=== PATIENT | male | born 1995 | race Caucasian/White ===

== ENCOUNTER 2023-12-01 19:53 | Emergency (ER) | payer OTHER, SELFPAY ==
[2023-12-01 19:56] VITALS: BP 119/75; BMI 20.7
[2023-12-01 21:01] VITALS: BP 117/73
[2023-12-01] MEDS: XYLOCAINE 4% TOPICAL SOLUTION 5 ML TOPICAL (21:30)
[2023-12-01] MEDS: TORADOL 30 MG IV (21:57)
[2023-12-01 22:03] VITALS: BP 123/66
--- NOTE | 2023-12-02 00:21 | ED.GENMED ---
History of Present Illness
General
Chief Complaint: Anal/Rectal Problem
Source: patient and spouse
Exam Limitations: none
Time Seen by Provider: 12/01/23 19:56
Nursing documentation reviewed up to this point in time: agreed with
History of Present Illness
History of Present Illness:
28-year-old male with no chronic medical issues presents for evaluation of rectal pain. Patient says that he has had severe pain from hemorrhoids x 5 days. He says that the pain is much more intense when he sits down, much more intense with bowel
movements. He says he has been using sitz bath's, suppositories and topical hemorrhoid cream but symptoms have not improved and in fact have worsened. Came to the emergency room for evaluation. He has not noticed any significant constipation but
does bear down a bit with bowel movements.
Past History
Social History
Tobacco: Smoker
Alcohol: Occasional
Family History
Family History: Other (Hemachromatosis in his dad and uncles)
Review of Systems
Review of Systems
All Other Systems: ROS reviewed and negative except as documented in HPI and ROS
ABD/GI: Reports other (Rectal pain)
Phy Exam
Physical Exam
Physical Exam:
General: Appears uncomfortable laying on his side in bed
HEENT: protecting airway
Neck: appears supple
CV: No evidence of cyanosis
Resp: No accessory muscle use
Abd: Non-distended, nontender
Rectal: Patient has a large thrombosed external hemorrhoid at the 9 o'clock position as well as a smaller thrombosed hemorrhoid at approximately 7 o'clock position; hemorrhoids are purpleish hue, hard and tender to the touch
Extremities: No deformities
Neuro: Alert
Psych: Normal affect
Skin: Intact
Scores
Heart Failure Risk
Heart Failure Risk Score: Not Applicable
Heart Score for Chest Pain Patients
STEMI patient?: Not applicable
Withdrawal Assessment of Alcohol
Withdrawal Assessment Completed?: Not applicable
Course
Orders/Labs/Results
Orders:
Orders
12/01/23 21:20
Lidocaine HCl 4% [Xylocaine 4% Topical Solution] 5 ml TOPICAL ONCE ONE
12/01/23 21:55
Ketorolac [Toradol] 30 mg .ROUTE .STK-MED ONE
12/01/23 21:57
Ketorolac [Toradol] 30 mg IV NOW STA
Vital Signs
Initial and Last Documented VS:
Initial Vital Signs
Temp Pulse Resp BP Pulse Ox
36.3 C 84 18 119/75 98
12/01/23 19:56 12/01/23 19:56 12/01/23 19:56 12/01/23 19:56 12/01/23 19:56
Last Documented Vital Signs
Temp Pulse Resp BP Pulse Ox
36.3 C 72 20 123/66 100
12/01/23 19:56 12/01/23 22:03 12/01/23 22:03 12/01/23 22:03 12/01/23 22:03
Procedures
Other
Indication for procedure:: thrombosed external hemorrhoid
Procedure completed by: Cirilo Castillo MD
Additional Procedure:
Excision of thrombosed external hemorrhoid
Verbal consent obtained from patient. Patient was positioned in the prone position on the bed. Topical lidocaine applied prior to procedure. Tape applied to the buttocks to expose thrombosed hemorrhoids. Instilled local anesthetic 1% lidocaine
with epinephrine using 27-gauge needle with good anesthesia. Made elliptical incision in overlying skin of the larger thrombosed hemorrhoid at the 9 o'clock position. Clot manually removed from this hemorrhoid which was subsequently irrigated with
saline solution. I then made an elliptical incision over the smaller hemorrhoid at the 7 o'clock position and again manually remove clot and irrigated with saline solution. Bleeding controlled with gauze and direct pressure. Gauze dressing
applied. Patient tolerated procedure well.
MDM/Problems Addressed
Differential Diagnosis Includes:
Thrombosed external hemorrhoids
MDM/Problems Addressed:
28-year-old male presents with severe rectal pain�he has thrombosed external hemorrhoids on exam today. He has tried conservative measures but symptoms are worsening. He has had symptoms for greater than 72 hours but is having severe pain and has
to be very clearly thrombosed hemorrhoids. We spoke about treatment options including more aggressive topical treatments and more frequent sitz bath's versus trial of excision. Will proceed with excision and reassess.
Thrombosed hemorrhoids excised and I was able to express multiple large clots from the larger hemorrhoid at the 9 o'clock position and 1 small solid clot from the small hemorrhoid at the 7 o'clock position. Provided some topical lidocaine
subsequent to procedure as well as some Toradol. He did have a general improvement but still having significant hemorrhoid pain after excision. Case discussed with colorectal surgery they will see patient in the office this week. Advised patient
to continue with sitz bath's and topical treatments. Start Colace. All questions answered.
*Pulse Oximetry
Patient hypoxic: no
*Critical Care Note
Total Time (30-74mins, 75-104mins- exclusive of procedures): Not Applicable
Data Reviewed
Source: patient and spouse
Patient Management
Discussion with other providers: Food Tester (Discussed with colorectal surgery)
ED Attending Note
-
Portions of this chart may have been created with voice recognition software.� Occasional wrong word or��sound alike� substitutions may have occurred due to the inherent limitations of voice recognition software.
Discharge Plan
Departure
Patient Disposition: Home (Routine Discharge)
Date of Disposition: 12/01/23
Time of Disposition: 20:47
Patient with high blood pressure during this ER visit?: No
Discharge Problem:
External thrombosed hemorrhoids
Instructions: Hemorrhoids (DC), How to Do a Sitz Bath
Prescriptions:
New
lidocaine HCl [Lidocaine Viscous] 2 % solution
1 applic mucous membrane QID PRN (Reason: Pain) Qty: 100 0RF
Hemorrhoidal (witch johanna) 50 % pads, medicated
1 pad topical BID PRN (Reason: skin cleansing) Qty: 48 0RF
hydrocortisone 2.5 % cream with perineal applicator
1 applic MA DAILY PRN (Reason: hemorrhoids) Qty: 30 0RF
docusate sodium [Colace] 100 mg capsule
100 mg PO BID Qty: 20 0RF
No Action
ibuprofen [Advil] 200 MG tablet
400 mg PO Q6HPRN PRN (Reason: mild pain)
Referrals:
Thierry Clark MD [Active] - Call in 1-3 days for appt (Colorectal doctor)
Activity Restrictions/Additional Instructions:
Thank you for visiting the Emergency Department at [facility].
1. Please schedule a follow up appointment as directed. Call first thing tomorrow morning to make an appointment.
2. If indicated, please take your medications as instructed and indicated on discharge paperwork.
3. If any of your symptoms do not improve, or persist, or become more severe within 6-12 hours, please return to the emergency department for further care.
4. Please return to the emergency department if you develop a headache, neck pain/stiffness, fever greater than 100.4F, chest pain, shortness of breath, persistent nausea, vomiting, slurred speech, difficulty walking, numbness/tingling, weakness,
signs of infection or any other symptoms that are worrisome to you.
Please call [phone] if you have any questions.
Interventions
Interventions:
*Risk Screen - Suicide Last Done: 12/01/23 19:56
*General Assessment Last Done: 12/01/23 19:56
*Neglect/Abuse Screening Last Done: 12/01/23 19:56
ED- Fall Risk Assessment Last Done: 12/01/23 19:56
*ED COVID-19 Vaccine History Last Done: 12/01/23 19:56
AF-Faeybv-Crflwxseve Assessment Last Done: 12/01/23 20:12
ED-Skin Assessment Last Done: 12/01/23 20:12
Discharge Date and Time
Print Language: KHMER
== END 2023-12-01 22:45 | disposition home or self-care (01) ==
LOC: EMR 19:53
PROVIDERS: EMERGENCY PHYSICIAN Emergency Medicine; FAMILY PHYSICIAN Family Medicine
DX: K64.5 Perianal venous thrombosis (principal); F17.200 Nicotine dependence, unspecified, uncomplicated; Z87.19 Personal history of other diseases of the digestive system
CPT/HCPCS: 99283; 46083